=== PATIENT | female | born 1955 | race Caucasian/White ===

== ENCOUNTER → 2018-04-10 17:10 | Outpatient (CLI) | payer OTHER, SELFPAY ==
--- NOTE | 2018-04-10 17:13 | DI.MRI.S_ITS ---
PROCEDURE: MR LUMBAR SPINE WO CON INDICATIONS: SCIATICA OF RIGHT SIDE TECHNIQUE: Noncontrast sagittal T1 spin echo and T2 fast echo, sagittal STIR, axial T1 and T2 fast spin echo through the lumbar spine. In cases with scoliosis, additional coronal T2 fast spin echo may be performed. COMPARISON: [facility], CT, ABDOMEN/PELVIS WITH CONTRAST, 10/08/2008, 19:09. FINDINGS: Image quality: Excellent. Alignment and Curvature: There is normal bony alignment. Bone Marrow: Marrow is of normal overall signal. No acute vertebral body compression fractures. Spinal Cord: Conus medullaris terminates at the L1 level. Visualized cord demonstrates normal signal and size. Paraspinous Soft Tissues: No paravertebral masses. T12-L1: Normal appearance. L1-L2: No significant abnormality is seen. L2-L3: The disc height is well-preserved. Loss of disc signal is seen at this level. Minimal to mild disc bulge is seen. No significant neural foraminal or central canal narrowing are seen. L3-L4: The disc height is well-preserved. Loss of disc signal is seen at this level. Mild to moderate disc bulge is seen. Mild facet joint hypertrophy is seen. There is mild to moderate right-sided and moderate left-sided neural foraminal narrowing seen. Mild central canal narrowing is seen. L4-L5: The disc height is well-preserved. Loss of disc signal is seen at this level. Mild to moderate disc bulge is seen. Mild facet joint hypertrophy is seen. There is at least moderate bilateral neural foraminal narrowing seen, left worse than right. Moderate central canal narrowing is seen. L5-S1: The disc height is well-preserved. Loss of disc signal is seen at this level. Mild to moderate disc bulge is seen, with a mild central disc protrusion, as on series 5 image 5. There is moderate to severe right-sided neural foraminal narrowing seen, with associated impingement upon the exiting right L5 nerve root. Moderate left-sided neural foraminal narrowing is seen. Mild central canal narrowing is seen. IMPRESSION: Multiple levels of lumbar spine degenerative change are seen, which are most prominent at the L4-L5 and L5-S1 levels. Dictated by: Arjun Torres M.D. on 04/11/2018 at 8:55 Approved by: Arjun Torres M.D. on 04/11/2018 at 9:00
== END ==
PROVIDERS: Visit Provider Nurse Practitioner Family
DX: M51.36 Other intervertebral disc degeneration, lumbar region (principal); M51.37 Other intervertebral disc degeneration, lumbosacral region; M54.31 Sciatica, right side
CPT/HCPCS: 72148

== ENCOUNTER → 2019-02-23 09:13 | Outpatient (CLI) | payer OTHER, SELFPAY ==
--- NOTE | 2019-02-23 09:15 | DI.RAD.S_ITS ---
PROCEDURE: XR ELBOW RT MIN 3V INDICATIONS: fall, elbow pain and decreased ROM TECHNIQUE: 3 views of the elbow were acquired. COMPARISON: None. FINDINGS: Bones: No fractures or dislocations. No suspicious bony lesions. Age-appropriate bony degenerative changes are seen. Soft tissues: No elbow joint effusion. No suspicious soft tissue calcifications. IMPRESSION: No displaced fractures are seen on these plain films. If there is focal tenderness, or other clinical concern for a fracture not seen on these images in this patient with a given history of trauma, please consider a dedicated CT or a short-term followup plain film series (in 1-2 weeks) for further evaluation. Dictated by: Arjun Torres M.D. on 02/23/2019 at 8:59 Approved by: Arjun Torres M.D. on 02/23/2019 at 8:59
== END ==
PROVIDERS: PCP Nurse Practitioner Family; Visit Provider Physician Assistant
DX: M25.521 Pain in right elbow (principal)
CPT/HCPCS: 73080

== ENCOUNTER 2019-12-03 06:04 | Day surgery (SDC) | payer MEDICARE, SELFPAY ==
[2019-12-03] VITALS (11 sets, daily range): BP systolic 107–133; BP diastolic 48–76; PULSE 65–87; RESP 12–16; TEMP 36.2–37; O2SAT 94–100; BMI 22.8
--- NOTE | 2019-12-03 | DI.RAD.S_ITS ---
PROCEDURE: XR LUMBAR SPINE 1V INDICATIONS: l4-l5 laminectomy, l5-s1 disectomy TECHNIQUE: Single views of the lumbar spine were acquired. COMPARISON: [facility] JOSE ANGEL Harrell, XR LUMBAR SPINE 2 OR 3 VIEWS, 04/23/2019, 14:54. FINDINGS: Spot fluoroscopic intraoperative images demonstrating surgical instruments with a probe and the tip is projecting at the level of L5-S1 Dictated by: Aditya Dexter M.D. on 12/03/2019 at 10:14 Approved by: Aditya Dexter M.D. on 12/03/2019 at 10:17
[2019-12-03] MEDS: LACTATED RINGERS 1,000 ML 42 ML IV (07:15)
[2019-12-03] MEDS: ACETAMINOPHEN 325 MG TABLET 975 MG PO (07:18)
--- NOTE | 2019-12-03 07:25 | PM.PREOP ---
Pre-operative Note Interval Note History & Physical reviewed/Exam performed by Physician: Yes Changes to H&P: No
[2019-12-03] MEDS: CEFAZOLIN 2 GM/100 ML FROZ.PIGGY IV (07:44)
--- NOTE | 2019-12-03 08:11 | SUR.OPER ---
Prone on spine table, head in foam head support, padded chest and pelvic supports, gel pad at knees, lower legs supported by pillows; nipples, genitalia and toes free of pressure, arms secured on foam padded arm boards at <90 degrees abduction. Tape over blanket at thigh secured to table.
[2019-12-03] MEDS: SODIUM CHLORIDE 0.9% 1,000 ML, GENTAMICIN 80 MG IRR (08:18)
[2019-12-03] MEDS: THROMBIN (RECOMBINANT) 5,000 UNIT VIAL 5000 UNIT TOP (08:18)
[2019-12-03] MEDS: VANCOMYCIN 1,000 MG VIAL 1000 MG TOP (08:19)
[2019-12-03] MEDS: BUPIVACAINE 0.25% (PF) 8 ML, fentaNYL 100 MCG INJ (09:05)
--- NOTE | 2019-12-03 09:19 | PM.OP.1 ---
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 They had failed conservative management and requested operative intervention. Risks and benefits of surgery were discussed and appropriate consents were obtained. Surgeon: Kashmir Kendrick Physicians And Surgeons: Telma Hutchinson Anesthesia Type: General Operative Notes Findings: None Closure Type: primary Specimen(s): none sent Estimated Blood Loss (mL): 10 Procedure in detail: Patient was brought to the operating room and intubated on the table. A time-out was performed. There were rolled over the well-padded prone position on the Eddie table. The back was prepped and draped in standard sterile fashion. Preoperative antibiotics were given. Using fluoroscopy, a 3 cm incision was made to the well-marked right of the midline at the L5 level. We used Bovie to come down to and split the fascia. We then used the NuVasive MaXcess dilators with fluoroscopy and then opened our retractors. The soft tissue was cleared off with Bovie, a marker was placed, an x-ray was taken to confirm positioning at the L5-S1 level. We then brought in the microscope. A combination of high-speed bur and Kerrison were used to perform a right-sided hemilaminotomy and hemifacetectomy. We carefully retracted the dura and expose the disc. This was cleared with bipolar. A scalpel used to perform an annulotomy and a pituitary was used to perform the diskectomy. The ball probe was swept underneath the dura along the disc to make sure there were no further loose fragments. This was also placed into the disc and moved around to make sure there were no further loose fragments. Once everything was adequately decompressed, the wound was copiously irrigated. We then closed down our retractors and moved them up to the L4-5 level. We cleared off the soft tissue with Bovie. We used a combination of high-speed bur and Kerrisons to perform a laminectomy at L4-5. This was more extensive than the level below as we went past the midline with the bur and then carefully depressed the dura to remove the soft tissue with ligamentous thickening on the left-hand side to clear out the full canal. We cleared out the neural foramen. In the end we could sweep the ball probe cephalad caudally across the opposite side and into the foramen and everything was open. The wound was irrigated. An epidural catheter was filled with 100 mcg of fentanyl and 8 mL of 0.25% Marcaine. The dura was carefully depressed under the laminotomy site and the catheter was advanced 6 cm cephalad. The retractor was removed and the fascia was closed. The epidural catheter was then injected without resistance and removed. Vancomycin powder was placed in the wound. Superficial and skin were closed. Sterile dressing was placed. The patient was then rolled over, transferred to the stretcher, and brought to recovery room without complications. Complications: none Post-operative Condition: stable Disposition: PACU Plan for aftercare: Outpatient. Limited bending, twisting, lifting for 2 weeks and then start in physical therapy as tolerated.
[2019-12-03] MEDS: fentaNYL 100 MCG/2 ML INJ IV (09:47)
[2019-12-03] MEDS: ONDANSETRON 4 MG/2 ML INJ IV (09:48)
[2019-12-03] MEDS: OXYCODONE IR 5 MG TABLET PO (10:03)
--- NOTE | 2019-12-03 10:17 | SUR.PHASEII ---
This nurse called patient's daughter to notify of pending discharge.
--- NOTE | 2019-12-03 11:11 | SUR.PHASEII ---
Late entry 10:05: Called patient's daughter and left message regarding completion of surgery.
--- NOTE | 2019-12-03 11:12 | SUR.PHASEII ---
10:30 late entry: Called patient's daughter again and left second message. Checked with volunteers in waiting area. No family found. Patient states there is no additional contact for daughter.
--- NOTE | 2019-12-03 11:13 | SUR.PHASEII ---
11:00 Late entry: called blair's daughter, Jerica, for third time. No answer.
--- NOTE | 2019-12-03 12:57 | SUR.PHASEII ---
Late entry: Pt's daughter did not show, friend instead drove pt home. Pt's dressing remained c/d/i. Pt. stated her pain was tolerable. Pt left in stable condition.
== END 2019-12-03 12:00 | disposition home or self-care (01) ==
PROVIDERS: PCP Family Medicine; Referring Provider Nurse Practitioner Family; Visit Provider Orthopaedic Surgery
PROC: (CPT 63047; principal; 2019-12-03 07:45)
DX: M48.062 Spinal stenosis, lumbar region with neurogenic claudication (principal); M51.16 Intervertebral disc disorders with radiculopathy, lumbar region
CPT/HCPCS: 63047; 63030; 72020; 76000; J0690; J1100; J2250; J2405; J2704; J3010

== ENCOUNTER → 2021-04-06 11:43 | Outpatient (CLI) | payer MEDICARE, SELFPAY ==
[2021-04-06 19:29] LABS: Add Manual Diff / Slide Review NO; Basophils Absolute Auto 100 /uL (0-100); Basophils Percent Auto 0.9 % (0-2); Eosinophils Absolute Auto 200 /uL (0-450); Eosinophils Percent Auto 2.7 % (2-4); Hematocrit 41.1 % (36-46); Hemoglobin 13.7 g/dL (12.0-16.0); Lymphocytes Absolute Auto 2600 /uL (1100-4500); Lymphocytes Percent Auto 36.9 % (25-40); Mean Corpuscular HGB Conc 33.2 % (30-36); Mean Corpuscular Hemoglobin 27.7 PG (26-34); Mean Corpuscular Volume 83.2 fL (80-100); Monocytes Absolute Auto 500 /uL (0-900); Monocytes Percent Auto 6.5 % (3-14); Neutrophils Absolute Auto 3700 /uL (1500-7000); Platelet Count 258 X10^3/uL (150-400); Red Blood Cell Count 4.94 X10^6/uL (4.0-5.2); Red Cell Distribution Width 13.9 % (11.6-14.8)
[2021-04-06 19:42] LABS: Alanine Aminotransferase 16 IU/L (<35); Albumin 4.1 g/dL (3.5-5.0); Albumin Globulin Ratio 1.3 (1.0-2.8); Alkaline Phosphatase 72 U/L (38-126); Aspartate Aminotransferase 29 IU/L (14-36); Bilirubin Total 0.4 mg/dL (0.2-1.3); Blood Urea Nitrogen 14 mg/dL (7-17); Calcium 9.4 mg/dL (8.4-10.2); Carbon Dioxide 26 mmol/L (22-32); Chloride 107 mmol/L (98-107); Cholesterol 259 mg/dL (140-199); Estimated Glomerular Filt Rate > 60.0 mL/min (>60); Globulin 3.1 g/dL (1.7-4.1); Glucose 103 mg/dL (80-110); HDL Cholesterol 59 mg/dL (40-60); HEMOLYSIS < 15 (0-50); LDL Cholesterol Calculated 180 mg/dL (<100); Potassium 4.4 mmol/L (3.4-5.1); Sodium 141 mmol/L (137-145); Total Protein 7.2 g/dL (6.3-8.2); Triglycerides 100 mg/dL (35-150)
== END ==
PROVIDERS: PCP Family Medicine; Visit Provider Family Medicine
DX: F11.90 Opioid use, unspecified, uncomplicated (principal); F41.9 Anxiety disorder, unspecified; G47.00 Insomnia, unspecified; G47.33 Obstructive sleep apnea (adult) (pediatric); R53.83 Other fatigue; Z79.899 Other long term (current) drug therapy
CPT/HCPCS: 80053; 80061; 84443; 85025

== ENCOUNTER → 2023-07-07 11:00 | Outpatient (CLI) | payer MEDICARE, SELFPAY ==
--- NOTE | 2023-07-07 | DI.US.S_ITS ---
PROCEDURE: US THYROID INDICATIONS: SUBCLINICAL HYPOTHYROIDISM TECHNIQUE: Real-time scanning was performed of the thyroid gland, with image documentation. COMPARISON: None. FINDINGS: Right: Thyroid lobe measures 4.2 x 1.3 x 1.4 cm, and is heterogeneous in echotexture. Left: Thyroid lobe measures 3.5 x 1.6 x 1.3 cm, and is heterogeneous in echotexture. Isthmus: 2.0 mm thick. Nodule number: 1 Location: Right Size: 0.5 cm. Composition: Solid Echogenicity: Hypoechoic Shape: wider than tall. Margins: Smooth Echogenic foci: None. Total points: 4 ACR TI-RADS category: Moderately suspicious IMPRESSION: 1. Moderately suspicious 5 mm right thyroid nodule. Given the small size, no additional follow-up is warranted. ACR TI-RADS definitions and recommendations: TI-RADS 1 (benign): 0 points. FNA not needed. TI-RADS 2 (not suspicious): 2 points. FNA not needed. TI-RADS 3 (mildly suspicious): 3 points. * FNA if 2.5 cm or larger, follow up if 1.5 cm or larger (at 1, 3, and 5 years). TI-RADS 4 (moderately suspicious): 4-6 points. * FNA if 1.5 cm or larger, follow up if 1 cm or larger (at 1, 2, 3, and 5 years). TI-RADS 5 (highly suspicious): 7 points or more. * FNA if 1 cm or larger, follow up if 0.5 cm or larger (every year for 5 years). Dictated by: Colten MADRIGAL Interpreted: Carl Wilson MD on 07/07/2023 at 12:39 Transcribed by: MIKHAIL on 07/11/2023 at 16:16 Approved by: John Wilson M.D. on 07/13/2023 at 9:12
== END ==
PROVIDERS: PCP Family Medicine; Referring Provider Student in an Organized Health Care Education/Training Program; Visit Provider Student in an Organized Health Care Education/Training Program
DX: E03.8 Other specified hypothyroidism (principal); E04.1 Nontoxic single thyroid nodule
CPT/HCPCS: 76536

== ENCOUNTER → 2025-03-28 11:36 | Outpatient (CLI) | payer OTHER, MEDICAID, SELFPAY ==
--- NOTE | 2025-03-28 11:37 | DI.RAD.S_ITS ---
PROCEDURE: FL BARIUM SWALLOW INDICATIONS: Abnormal swallowing COMPARISON: None. FINDINGS: Function: There is weak and esophageal peristalsis, resulting in intermittent tertiary contractions. No elicited gastroesophageal reflux. There is normal transit of a calibrated barium tablet through the esophagus into the stomach. Felipe fundoplication present. Morphology: Single contrast views show no esophageal strictures, extrinsic mass effects, or diverticula. Limited images of the stomach demonstrate normal appearance. IMPRESSION: Intact Felipe fundoplication, without elicited gastroesophageal reflux. Moderate esophageal dysmotility. Dictated by: Rodrigo Dunham M.D. on 04/01/2025 at 10:21 Approved by: Rodrigo Dunham M.D. on 04/01/2025 at 10:21
== END ==
PROVIDERS: PCP Family Medicine; Referring Provider Family Medicine; Visit Provider Family Medicine
DX: R13.10 Dysphagia, unspecified (principal); K22.4 Dyskinesia of esophagus
CPT/HCPCS: 74220

== ENCOUNTER → 2025-08-25 16:10 | Outpatient (CLI) | payer OTHER, SELFPAY ==
--- NOTE | 2025-08-25 16:11 | DI.MRI.S_ITS ---
PROCEDURE: MR HEAD/BRAIN WO CON INDICATIONS: mild memory disturbance TECHNIQUE: Non-contrast axial T1 spin echo, axial T2 fast spin echo, sagittal and axial FLAIR, coronal T2 fast spin echo, axial gradient echo, axial diffusion and ADC through the brain. COMPARISON: None. FINDINGS: Image quality: Excellent. CSF spaces: Ventricles appear symmetric in size and shape. Basal cisterns are patent. No extra-axial fluid collections. Brain: No intracranial bleeds or mass effects. There is cerebral volume loss for age. There are periventricular and deep white matter chronic small vessel ischemic changes. Brainstem appears normal. Diffusion-weighted images show no acute infarct. No chronic ischemic insults. Normal intravascular flow voids are present. Skull and face: Calvarial bone marrow is normal in signal. Orbits are normal. Right lens replacement. Sinuses: The paranasal sinuses are clear. Right mastoid effusion. IMPRESSION: Mild age-related global volume loss and chronic microvascular ischemic changes. No acute intracranial abnormalities. Dictated by: Shai Griffin M.D. on 08/25/2025 at 18:40 Approved by: Shai Griffin M.D. on 08/25/2025 at 18:42
== END ==
LOC: MRI 16:10
PROVIDERS: PCP Family Medicine; Referring Provider Family Medicine; Visit Provider Family Medicine
DX: R41.3 Other amnesia (principal); H74.8X1 Other specified disorders of right middle ear and mastoid
CPT/HCPCS: 70551